=== PATIENT | female | born 1970 | race African-American/Black ===

== ENCOUNTER 2020-11-17 17:51 | Emergency (ER) | payer OTHER ==
[~2020-11-17] VITALS: Ht 165.1 cm; Wt 154.2 kg
[2020-11-17] MEDS ORDERED: SODIUM CHLORIDE 0.9% 100 ML ONE (18:42)
[2020-11-17] MEDS ORDERED: CASIRIVIMAB/IMDEVIMAB 10 ML in SODIUM CHLORIDE 0.9% 100 ML IV ONE (18:45)
== END 2020-11-17 20:45 | disposition home or self-care (01) ==
LOC: ER 18:27
DX: R05 Cough (principal); U07.1 COVID-19
CPT/HCPCS: 99283; J7050